=== PATIENT | female | born 1995 | race American Indian/Alaskan Native ===

== ENCOUNTER 2020-07-27 22:49 | Emergency (ER) | payer SELFPAY ==
[2020-07-27 23:31] VITALS: BP 143/95
== END 2020-07-27 23:40 | disposition left against medical advice (07) ==
LOC: ED 22:49
DX: K64.8 Other hemorrhoids (principal); Z53.21 Procedure and treatment not carried out due to patient leaving prior to being seen by health care provider

== ENCOUNTER → 2020-08-21 18:14 | Emergency (ER) | payer SELFPAY | END | disposition left against medical advice (07) | LOC: ED 18:14 | DX: R21 Rash and other nonspecific skin eruption (principal); Z53.21 Procedure and treatment not carried out due to patient leaving prior to being seen by health care provider ==